=== PATIENT | male | born 1935 | race Caucasian/White ===

== ENCOUNTER → 2018-07-17 | Outpatient (CLI) | payer OTHER, MEDICARE ==
[~2018-07-17] MED LIST: NIACIN50 MG PO; UROXATRAL PO; ZOCOR20 MG PO
== END ==
LOC: RAD 11:38
DX: R06.2 Wheezing (principal)

== ENCOUNTER → 2018-07-24 | Outpatient (CLI) | payer OTHER, MEDICARE ==
[~2018-07-24] VITALS: Ht 180.3 cm; Wt 86.2 kg
[~2018-07-24] MED LIST changes: +ALPHA LIPOIC A100 MG PO; +ASPIRIN325 PO; +AVODART0.5 MG PO; +CO Q-10100 MG PO; +ESZOPICLONE3 MG PO; +GINSENG EXTRAC100 MG PO; +TURMERIC500 M2 PO; +VENTOLIN HFA 1818 GM INH; +VITAMIN B-12500 MCG PO; +VITAMIN B-6100 MG PO; +VITAMIN D-32000 UNIT PO; +XALATAN2.5 ML OPHTHALMIC
--- NOTE | 2018-07-25 08:37 | P ---
[facility] [place] [address] [place] [address] PROCEDURE REPORT Name: IVAN TUTTLE Room #: REG [facility]#: [id number] Admission: 07/24/18 Attend Phys: Júnior Cordon MD Discharge: Date of : 39 Report #: [id number] THIS REPORT FOR: //name// CC: Júnior Barfield BRIEF HISTORY: The patient is an 83-year-old male with a recent onset of diarrhea, which has become chronic. He also has a family history of celiac disease in his son. PREOPERATIVE DIAGNOSES: 1. Chronic diarrhea. 2. Family history of celiac disease. POSTOPERATIVE DIAGNOSES: 1. Grade B erosive esophagitis. 2. A 2 cm sliding type hiatus hernia. 3. Moderate diffuse erosive gastritis. MEDICATIONS: Deep sedation with propofol per anesthesia. SPECIMEN: Biopsies of small bowel, rule out celiac disease. ESTIMATED BLOOD LOSS: 3 mL. PROCEDURE: EGD with biopsy. FINDINGS: Prior to propofol sedation, procedure of upper endoscopy was discussed with the patient as well as potential risks, benefits and complications. He indicates he understands and desires to proceed. DESCRIPTION OF PROCEDURE: With the patient in left lateral decubitus position, the Olympus video endoscope was inserted in the cervical esophagus under direct vision without difficulty. Examination of this organ through its length revealed normal esophageal mucosa down the squamocolumnar junction. In the distal esophagus along the squamocolumnar junction, multiple erosions were seen consistent with a grade B erosive esophagitis with erosions extending in the distal body of the esophagus. No strictures or masses were seen. Gutierrez mucosa was not seen. A 2-3 cm sliding type hiatus hernia was seen. The mucosa in hernia was normal. Scope was advanced in the stomach, was examined on end view as well as retroflexed views. Examination of distal stomach revealed diffuse gastritis with multiple erosions in the antrum. No ulcers were seen. Upon retroflexion, the hiatus hernia was seen. No other abnormalities were identified. Biopsies were obtained of the gastritis. The pylorus was normal, duodenal bulb was inspected, the mucosa was intact. The scope was advanced in the duodenal sweep down to the second and third portion. He clearly does have [facility] [address] [place] [address] PROCEDURE REPORT Name: PARAGIVAN Nabor Room #: REG [facility].#: [id number] Admission: 07/24/18 Attend Phys: Júnior Cordon MD Discharge: Date of : 37 Report #: [id number] villi that may be shortened. Due to the family history and diarrhea, multiple biopsies were obtained. At that point, the scope was slowly withdrawn under careful circumferential views, confirmed the above findings. The patient tolerated the procedure well. CONDITION OF THE PATIENT UPON DISCHARGE: Following the procedure, the patient was drowsy and prepared for colonoscopy. INSTRUCTIONS TO THE PATIENT AND FAMILY AT THE TIME OF DISCHARGE: We will follow up on biopsies with regard to celiac disease. He clearly has an erosive esophagitis. We will have him start omeprazole 40 mg daily for at least 6-8 weeks. Thereafter, he may reduce as needed. He should return to the office for followup if reflux is not well controlled. At this point in time, we will proceed with colonoscopy for further evaluation of his diarrhea. <ELECTRONICALLY SIGNED> By: Júnior Cordon MD 07/25/18 0837 [id number] [id number] Júnior Cordon MD /nt
--- NOTE | 2018-07-25 08:37 | P ---
[facility] [place] [address] [place] [address] PROCEDURE REPORT Name: IVAN TUTTLE Room #: REG [facility]#: [id number] Admission: 07/24/18 Attend Phys: Júnior Cordon MD Discharge: Date of : 37 Report #: [id number] THIS REPORT FOR: //name// CC: Júnior Barfield BRIEF HISTORY: The patient is an 83-year-old male with a history of chronic diarrhea. He has had a change in bowel habits with the development of loose and watery stools. He has not had rectal bleeding or abdominal pain. PREOPERATIVE DIAGNOSIS: Change of bowel habits. POSTOPERATIVE DIAGNOSES: 1. Mild sigmoid diverticulosis coli. 2. Small internal hemorrhoids. MEDICATIONS: Deep sedation with propofol per anesthesia. SPECIMEN: 1. Random biopsies, proximal colon, rule out colitis. 2. Random biopsies distal colon and rectum, rule out colitis. ESTIMATED BLOOD LOSS: 3 mL. PROCEDURE: Colonoscopy to cecum and terminal ileum with biopsy. FINDINGS: Prior to propofol sedation, procedure of colonoscopy discussed with the patient as well as potential risks and its complications. He indicates he understands and desires to proceed. DESCRIPTION OF PROCEDURE: With the patient in left lateral decubitus position, digital examination was completed, which revealed no abnormalities. Subsequently, the Olympus video colonoscope was introduced in the rectum, advanced under direct vision to the cecum. Done with minimal difficulty. Cecum was identified by the ileocecal valve and the appendiceal orifice. I was able to visualize the distal segment of terminal ileum, which was inspected and unremarkable. There was no evidence of inflammatory bowel disease. There was no evidence of Crohn's disease in the distal terminal ileum. At that point, the scope was slowly withdrawn and careful circumferential views were obtained. Upon slow withdrawal of the scope, the prep was excellent. The mucosa was within normal limits, normal vascular pattern, normal light reflex. As we withdrew the scope, the mucosa was normal. He had normal mucosa throughout the entire colon. No neoplastic lesions were seen on today's exam. As we withdrew the scope through the normal-appearing colon, he was found to have mild sigmoid diverticular disease and a few scattered diverticula. There was no endoscopic evidence of diverticulitis. The scope was withdrawn in the rectum, no [address] [address] PROCEDURE REPORT Name: IVAN TUTTLE Room #: REG [facility]#: [id number] Admission: 07/24/18 Attend Phys: Júnior Cordon MD Discharge: Date of : 37 Report #: [id number] abnormalities were seen. Upon retroflexion, small hemorrhoids were seen. Scope was withdrawn and the patient tolerated the procedure well. CONDITION OF THE PATIENT UPON DISCHARGE: Following procedure, the patient drowsy, aroused, conversant and will be discharged home when fully ambulatory. INSTRUCTIONS TO THE PATIENT AND FAMILY AT THE TIME OF DISCHARGE: Findings as noted above. Obvious inflammatory disease was not identified. We will follow up on biopsies. In the meantime, he may use Imodium as needed for his bouts of diarrhea. Please also see upper endoscopy report as well. He will return to care of Dr. Soren Barfield. If he continues to have problems, he will see me in followup in the office. Last colonoscopy was more than 5 years ago. Withdrawal time from cecum was 12 minutes 39 seconds. <ELECTRONICALLY SIGNED> By: Júnior Cordon MD 07/25/18 0837 0850 [id number] Júnior Cordon MD /nt
--- NOTE | 2018-07-25 16:07 | PATH ---
[facility] [place] [address] PATHOLOGY RPT PROCEDURE Name: MARINOIVAN Nabor [id number] Admission: 07/24/18 Date of : 39 Discharge: Report #: [id number] Path Case #: [id number] [facility] Accession Number: [id number] . 01 Material submitted: . PART A: SMALL BOWEL BIOPSY R/O CELIAC PART B: GASTRITIS BIOPSY R/O H PYLORI PART C: RANDOM BIOPSY PROXIMAL COLON R/O COLITIS (RE CHRONIC DIARRHEA) PART D: RANDOM BIOPSY DISTAL COLON AND RECTUM R/O COLITIS (RE: CHRONIC DIAR . 01 Clinical history: . Pre-OP DX: Chronic diarrhea Post-OP DX: Small hiatal hernia, gastritis, esophagitis . 02 Diagnosis: A. Small bowel mucosa, small bowel rule out celiac, endoscopic biopsy: - No significant diagnostic abnormalities present. - Negative for villous blunting or increase in intraepithelial lymphocytes. . B. Gastric mucosa, gastritis rule out Helicobacter pylori, endoscopic biopsy: - Mild chronic gastritis associated with features of reactive gastropathy and focal intestinal metaplasia. - Negative for atrophy or dysplasia. - Negative for Helicobacter pylori (properly controlled immunohistochemical stain performed). . C. Large intestinal mucosa, proximal colon rule out colitis, endoscopic biopsy: - Moderate active colitis, please see comment. - Negative for dysplasia. . D. Large intestinal mucosa, distal colon and rectum rule out colitis, endoscopic biopsy: - Moderate active colitis, please see comment. - Negative for dysplasia. [facility]/07/25/2018 . 02 Comment: Examination shows acute surface epithelial inflammation, a markedly expanded lamina propria as well as marked cryptitis. Crypt abscess formation or viral inclusions are not identified. There is focal sparing of one of the fragments in the biopsy tissue designated "distal colon and rectum". There are no granulomata identified. Architectural abnormalities are not identified as well. Overall findings may be suggestive of active colitis likely due to infectious etiology, in [address] [address] PATHOLOGY RPT PROCEDURE Name: IVAN MARINO Nabor [facility] [id number] Admission: 07/24/18 Date of : 39 Discharge: Report #: [id number] Path Case #: [id number] addition to inflammatory bowel disease (including Crohn's disease as well as ulcerative colitis). Please correlate clinically and follow up as indicated. (IUV:pit 07/25/2018) . 02 Electronically signed: . Inna Gutierrez MD, Pathologist NPI- [id number] . 01 Gross description: . A. Received in formalin labeled "Ivan Marino, small bowel biopsy, rule out celiac," are 3 segments of arteaga soft tissue measuring 1.5 x 0.5 x 0.3 cm in aggregate dimensions and ranging from 0.4 to 0.5 cm in maximum dimension. The specimen is submitted entirely in cassette A1. . B. Received in formalin labeled "Ivan Marino, gastritis biopsy, rule out H. pylori," are 4 segments of arteaga soft tissue measuring 1.5 x 0.8 x 0.4 cm in aggregate dimensions and ranging from 0.2 to 0.6 cm in maximum dimension. The specimen is submitted entirely in cassette B1. . C. Received in formalin labeled "Ivan Marino, random biopsy proximal colon, rule out colitis," are multiple segments of arteaga soft tissue measuring 1.8 x 0.6 x 0.2 cm in aggregate dimensions. The specimen is filtered and entirely submitted in cassette C1. . D. Received in formalin labeled "Ivan Marino, random biopsy distal colon and rectum," are 6 segments of arteaga soft tissue measuring 1.1 x 1.2 x 0.2 cm in aggregate dimensions and ranging from 0.2 to 0.6 cm in maximum dimension. The specimen is submitted entirely in cassette D1. (TSD; 07/24/2018) TOB/TOB . 02 Pathologist provided ICD-10: K29.50, K31.9, K52.9 . 02 CPT . 692937, 931367, 509913, [id number], [id number] Specimen Comment: A courtesy copy of this report has been sent to Specimen Comment: [phone], . Specimen Comment: Report sent to / DR SOLANO Performed at: [address], [place], [place] [id number] MD Jeffry Meyer MD Phone: [phone] Performed at: [address] [id number] MD Inna Gutierrez MD Phone: [phone]
== END | disposition home or self-care (01) ==
LOC: GI 06:35
DX: K52.9 Noninfective gastroenteritis and colitis, unspecified (principal); K57.30 Diverticulosis of large intestine without perforation or abscess without bleeding; K64.9 Unspecified hemorrhoids; K44.9 Diaphragmatic hernia without obstruction or gangrene; K29.50 Unspecified chronic gastritis without bleeding
CPT/HCPCS: 62110; 62900